=== PATIENT | female | born 1970 | race Caucasian/White ===

== ENCOUNTER 2022-03-17 20:22 | Emergency (ER) | payer BC, SELFPAY ==
--- NOTE | 2022-03-17 | ECG_ITS ---
Test Reason : CP Blood Pressure : / mmHG Vent. Rate : 126 BPM Atrial Rate : 126 BPM P-R Int : 124 ms QRS Dur : 080 ms QT Int : 306 ms P-R-T Axes : 077 059 -73 degrees QTc Int : 443 ms Sinus tachycardia Biatrial enlargement Nonspecific ST abnormality Inferior leads Lateral leads Abnormal ECG When compared with ECG of 29-NOV-2018 14:15, Heart rate has increased ST more depressed Inferior leads Lateral leads Referred By: Generic ED Physician Electronically Signed By:BHAVESH MARTINEZ MD
--- NOTE | ~2022-03-17 | XR_ITS ---
EXAMINATION: XR CHEST CLINICAL INFORMATION: Chest pain COMPARISON: 11/29/2018 TECHNIQUE: Frontal view of the chest was obtained. FINDINGS: No significant abnormality is noted involving the heart, lungs, mediastinum, bony thorax or soft tissues. XR/XR chest 1V IMPRESSION: Unremarkable examination.
[2022-03-17 20:25] VITALS: BP 169/84; PULSE 105; RESP 20; TEMP 36.6; O2SAT 99; BMI 23.2
[2022-03-17 20:39] LABS: MANUAL DIFF FLAG NO
[2022-03-17 20:47] LABS: Basophils Percent Auto 0.3 % (0-2); Eosinophils Absolute Auto 0.1 X10*3/uL (0.0-0.4); Eosinophils Percent Auto 0.6 % (0-4); Hematocrit 40.6 % (37.0-47.0); Imm Gran Abs Auto 0.02 X10*3/uL (0.00-0.03); Imm Gran Pct Auto 0.2 % (0.0-0.4); Lymphocytes Absolute Auto 4.2 X10*3/uL (1.2-4.9); Lymphocytes Percent Auto 36.1 % (20-40); Mean Corpuscular HGB Conc 34.5 g/dl (31.0-35.0); Mean Corpuscular Hemoglobin 32.6 pg (27.0-33.0); Mean Corpuscular Volume 94.6 fL (80.0-98.0); Mean Platelet Volume 10.5 fL (9.4-12.3); Monocytes Absolute Auto 0.7 X10*3/uL (0.1-1.2); Monocytes Percent Auto 6.1 % (2-11); Neutrophils Absolute Auto 6.6 x10*3/uL (2.0-8.3); Neutrophils Percent Auto 56.7 % (45-73); Platelet Count 395 X10*3/uL (160-400); Red Blood Count 4.29 X10*6/uL (4.20-5.50); Red Cell Distribution Width 11.6 % (11.0-16.0); White Blood Count 11.6 X10*3/uL (4.8-10.8)
[2022-03-17 20:56] VITALS: BP 141/82; PULSE 82; RESP 18; TEMP 36.7; O2SAT 100
[2022-03-17 21:05] LABS: Anion Gap 15 (12-20); Blood Urea Nitrogen 17 mg/dL (9-16); Carbon Dioxide 24 mmol/L (22-29); Chloride 105 mmol/L (96-108); Creatinine Clr Calc Pharmacy 52.2; Estimated Glomerular Filt Rate > 60; Glucose Random 115 mg/dL (60-115); Potassium 3.6 mmol/L (3.3-5.1); Sodium 140 mmol/L (135-145)
[2022-03-17 21:10] LABS: Troponin-I High Sensitivity < 3.5 ng/L (<3.5-17.0)
--- NOTE | 2022-03-17 21:31 | ED_ITS ---
HPI - Chest Pain General Chief Complaint: Chest Pain Stated Complaint: Chest pain Time Seen by Provider: 03/17/22 21:04 Source: patient Mode of arrival: ambulatory History of Present Illness HPI narrative: 51-year-old female, nonsmoker, states that she developed sharp midsternal chest pain that lasted approximately 10 minutes when she changed position from sitting to standing. She denies any associated dizziness, headache, shortness of breath, nausea, diaphoresis. She states that this is never happened before, denies any history of acid reflux/alcohol use but reports history of SVT but denies any feelings of palpitations or ?it's rapid heart rate?. Related Data Allergies Allergy/AdvReac Type Severity Reaction Status Date / Time acetaminophen [From PERCOCET] Allergy Unknown HIVES Unverified 02/11/20 16:23 naproxen [NAPROXEN] Allergy Unknown HIVES Unverified 02/11/20 16:23 oxycodone [Percocet] Allergy Unknown hives Verified 09/16/13 00:00 From PERCOCET Allergy Unknown HIVES Uncoded 02/11/20 16:23 Review of Systems Review of Systems: Pertinent positives and negatives as stated in HPI 10 point review of systems is otherwise negative. PMFSH Past Medical History Source: nursing notes reviewed Social History Social History Advance Directives: No Advance Directives Information Provided: No Physical Exam Vital Signs: Vital Signs: Last Vital Signs Temp 98.0 F 03/17/22 20:56 Pulse 82 03/17/22 20:56 Resp 18 03/17/22 20:56 BP 141/82 H 03/17/22 20:56 Pulse Ox 100 03/17/22 20:56 O2 Del Method 03/17/22 20:56 BMI result Body Mass Index 23.2 VITAL SIGNS: Reviewed. GENERAL: Well developed, well nourished, in no acute distress. HEAD: Normocephalic/atraumatic EYES: PERRLA, EOMI EARS: Ext canals without abnormality OROPHARYNX: no oral lesions noted, posterior pharynx clear NECK: Supple, no adenopathy LUNGS: Normal breath sounds. No adventitious sounds or accessory muscle use. SpO2<100>; CHEST WALL: No reproducible chest pain/deformity/crepitus CARDIOVASCULAR: Regular rate and rhythm without noted murmurs ABDOMEN: Soft, non-tender, non-distended with bowel sounds. No rigidity. No guarding. No palpable masses or hernias noted MUSCULOSKELETAL: No tenderness, deformities, or effusions noted on gross inspection. EXTREMITIES: No cyanosis, clubbing or edema. SKIN: Inspection of the skin reveals no rashes NEUROLOGIC: Alert and oriented x 4. Strength and sensation to light touch were grossly intact x 4. Course Course Course Narrative: 51-year-old female with history and clinical presentation which to be ruled out for cardiopulmonary etiology and lower clinical suspicion for any infectious etiology. Review of all investigations negative for acute findings, serial troponins are undetectable and there are nonspecific changes on the EKG. Chest x-ray was without acute findings and patient is otherwise discharged home in stable condition with instructions to follow-up with her primary care provider and/or her hybrid technologist. Reevaluation(s) Reevaluation #1: I discussed this EKG with cardiology and given clinical exam and history with patient being chest free they are nonspecific changes without need for acute intervention. Time: 21:54 MDM - Chest Pain Lab Data Result diagrams: 03/17/22 20:35 03/17/22 20:35 Labs: Lab Results 03/17/22 03/17/22 03/17/22 Range/Units 20:35 20:35 20:35 WBC 11.6 H (4.8-10.8) X10*3/uL RBC 4.29 (4.20-5.50) X10*6/uL Hgb 14.0 (12.0-16.0) g/dl Hct 40.6 (37.0-47.0) % MCV 94.6 (80.0-98.0) fL MCH 32.6 (27.0-33.0) pg MCHC 34.5 (31.0-35.0) g/dl RDW 11.6 (11.0-16.0) % Plt Count 395 (160-400) X10*3/uL MPV 10.5 (9.4-12.3) fL Immature Gran % (Auto) 0.2 (0.0-0.4) % Neut % (Auto) 56.7 (45-73) % Lymph % (Auto) 36.1 (20-40) % [place] % (Auto) 6.1 (2-11) % Eos % (Auto) 0.6 (0-4) % Baso % (Auto) 0.3 (0-2) % Lymph # (Auto) 4.2 (1.2-4.9) X10*3/uL [place] # (Auto) 0.7 (0.1-1.2) X10*3/uL Eos # (Auto) 0.1 (0.0-0.4) X10*3/uL Baso # (Auto) 0.0 (0.0-0.2) X10*3/uL Abs Immat Gran (auto) 0.02 (0.00-0.03) X10*3/uL Absolute Neuts (auto) 6.6 (2.0-8.3) x10*3/uL Absolute Nucleated RBC 0.000 (0.0-0.012) X10*3/uL Nucleated RBC % (auto) 0.0 (0.0-0.2) /100WBC Sodium 140 (135-145) mmol/L Potassium 3.6 (3.3-5.1) mmol/L Chloride 105 (96-108) mmol/L Carbon Dioxide 24 (22-29) mmol/L Anion Gap 15 (12-20) BUN 17 H (9-16) mg/dL Creatinine 0.93 (0.5-1.4) mg/dL Estim Creat Clear Calc 52.2 Estimated GFR > 60 Random Glucose 115 (60-115) mg/dL Calcium 10.0 (8.4-10.2) mg/dL Troponin I High Sens < 3.5 (<3.5-17.0) ng/L 03/17/22 Range/Units 21:55 WBC (4.8-10.8) X10*3/uL RBC (4.20-5.50) X10*6/uL Hgb (12.0-16.0) g/dl Hct (37.0-47.0) % MCV (80.0-98.0) fL MCH (27.0-33.0) pg MCHC (31.0-35.0) g/dl RDW (11.0-16.0) % Plt Count (160-400) X10*3/uL MPV (9.4-12.3) fL Immature Gran % (Auto) (0.0-0.4) % Neut % (Auto) (45-73) % Lymph % (Auto) (20-40) % [place] % (Auto) (2-11) % Eos % (Auto) (0-4) % Baso % (Auto) (0-2) % Lymph # (Auto) (1.2-4.9) X10*3/uL [place] # (Auto) (0.1-1.2) X10*3/uL Eos # (Auto) (0.0-0.4) X10*3/uL Baso # (Auto) (0.0-0.2) X10*3/uL Abs Immat Gran (auto) (0.00-0.03) X10*3/uL Absolute Neuts (auto) (2.0-8.3) x10*3/uL Absolute Nucleated RBC (0.0-0.012) X10*3/uL Nucleated RBC % (auto) (0.0-0.2) /100WBC Sodium (135-145) mmol/L Potassium (3.3-5.1) mmol/L Chloride (96-108) mmol/L Carbon Dioxide (22-29) mmol/L Anion Gap (12-20) BUN (9-16) mg/dL Creatinine (0.5-1.4) mg/dL Estim Creat Clear Calc Estimated GFR Random Glucose (60-115) mg/dL Calcium (8.4-10.2) mg/dL Troponin I High Sens < 3.5 (<3.5-17.0) ng/L ECG Data ECG #1: Attestation: I personally reviewed and interpreted this ECG as follows: Prior ECG tracings: available for review Interpretation: 2024: Sinus tachycardia, HR-126, no STEMI, MD/QRS/QTC are within normal limits. 2199: Normal sinus rhythm, HR-73, no STEMI, MD/QRS/QTC is within normal limits. Discharge Plan Discharge Clinical Impression: Atypical chest pain Patient Disposition: Home, Self-Care Instructions: Chest Pain (ED) Additional Instructions: 1. Resume all home medications as prescribed. 2. Strongly recommend that you follow-up with your primary care provider by calling the office on Saturday morning and setting up an appointment for re- evaluation further outpatient management. Return to the ER for worsening symptoms.
--- OUTSIDE RECORDS SUMMARY | 2022-03-17 21:31 | XMS_ITS | Continuity of Care Document ---
:1970 Author Organization [facility] Adult Address [address] [place] [address]- Care Team Providers Name Role Phone Trace CARDOZO, Anna Moon Primary Care Phys[id number] Date(s[facility]/18/19 - 07/16/19 [facility] [address] [place] [address]- [facility] Attending Physician: Anna Woodward NP Allergies, Adverse Reactions, Alerts Substance Reaction Severity Status naproxen Active Percocet 5/325 Active Immunizations Given and Recorded Vaccine Date Status Refusal Reason influenza virus vaccine, inactivated1 06/25/17 Given tetanus/diphtheria/pertussis, acel(Tdap)2 04/18/16 Record ed 1Result Comment: [06/25/2017] [facility] [id number] Comment: incorrect Medications aspirin 81 mg oral delayed release tablet 81 mg, By Mouth, Daily, # 30 tablet, Refills 0, Tot. Refills 0, Maintenance, 07/29/18 15:23:39 EST, Route to Pharmacy Electronically, [id number], [facility] [id number] Start Date: 07/29/18 Status: Ordereddiltiazem 180 mg/24 hours oral capsule, extended release 180 mg, 1, capsule, By Mouth, Daily, # 90 capsule, Refills 0, Maintenance, 11/20/18 9:17:41 EDT Start Date: 11/20/18 Status: Orderedibuprofen 800 mg oral tablet 800 mg, 1, tablet, By Mouth, 3 times a day, PRN, # 21 tablet, Refills 0, Tot. Refills 0, Maintenance, for pain, 02/05/19 16:23:38 EDT, Route to Pharmacy Electronically, [id number], [facility] #[id number] Start Date: 02/05/19 Stop Date: 02/12/19 Status: Orderedpropafenone 150 mg oral tablet 150 mg, 1, tablet, By Mouth, Every 8 hours, # 90 tablet, Refills 0, Maintenance, 11/20/18 9:17:04 EDT Start Date: 11/20/18 Status: Ordered Problem List Condition Effective Dates Status Health Status Informant Abdominal pulsatile mass(Confirmed) Active Situational anxiety(Confirmed) Active Atrial fibrillation(Confirmed) Active Pre-syncope(Confirmed) Active Palpitations(Confirmed) Active Annual physical exam(Confirmed) Active Sinusitis(Confirmed) Active Social History Social History Type Response Smoking Status Never smoker entered on: 04/18/16 Sex
--- OUTSIDE RECORDS SUMMARY | 2022-03-17 21:31 | XMS_ITS | Continuity of Care Document ---
:1970 Author Organization [facility] Address [address] [place] [address]- Care Team Providers Name Role Phone Not on Staff, PCP Primary Care Physician Unavailable Encounter [facility] Date(s): 12/17/20 - 01/26/[address] [id number] Attending Physician: Mynor Ricci MD Admitting Physician: Mynor Ricci MD Referring Physician: Mynor Ricci MD Allergies, Adverse Reactions, Alerts Substance Reaction Severity Status naproxen Active Percocet 5/325 Active Immunizations Given and Recorded Vaccine Date Status Refusal Reason influenza virus vaccine, inactivated1 06/25/17 Given tetanus/diphtheria/pertussis, acel(Tdap)2 04/18/16 Record ed 1Result Comment: [06/25/2017] [facility] [id number] Comment: incorrect Medications aspirin 81 mg oral delayed release tablet 81 mg, By Mouth, Daily, # 30 tablet, Refills 0, Tot. Refills 0, Maintenance, 07/29/18 15:23:39 EST, Route to Pharmacy Electronically, [id number], [facility] [id number] Start Date: 07/29/18 Status: Ordereddiltiazem 180 mg/24 hours oral capsule, extended release 180 mg, 1, capsule, By Mouth, Daily, # 90 capsule, Refills 0, Maintenance, 11/20/18 9:17:41 EDT Start Date: 11/20/18 Status: Orderedpropafenone 150 mg oral tablet 150 mg, 1, tablet, By Mouth, Every 8 hours, # 90 tablet, Refills 0, Maintenance, 11/20/18 9:17:04 EDT Start Date: 11/20/18 Status: Orderedursodiol 250 mg oral tablet 1 tablet = 250 mg, By Mouth, 2 times a day, # 28 tablet, 0 Refills, Maintenance, 08/28/19 15:15:00 EDT, Tablet, [id number], 148, cm, 03/04/19 10:56:00 EDT, Height Start Date: 08/28/19 Status: Ordered Problem List Condition Effective Dates Status Health Status Informant Abdominal pulsatile mass(Confirmed) Active Situational anxiety(Confirmed) Active Atrial fibrillation(Confirmed) Active Pre-syncope(Confirmed) Active Palpitations(Confirmed) Active Annual physical exam(Confirmed) Active Sinusitis(Confirmed) Active Social History Social History Type Response Smoking Status Never smoker entered on: 04/18/16 Sex
--- OUTSIDE RECORDS SUMMARY | 2022-03-17 21:31 | XMS_ITS | Continuity of Care Document ---
:1970 Author Organization [facility] Adult Address [address] [place] [address]- Care Team Providers Name Role Phone Trace RESIDENT CARE MANAGER RN, Anna Moon Primary [id number] Date[facility]/28/[facility] - 09/04/[facility] [address] [place] [address]- [facility] Attending Physician: Juanpablo MATSON, Reji Serna Allergies, Adverse Reactions, Alerts Substance Reaction Severity Status naproxen Active Percocet 5/325 Active Immunizations Given and Recorded Vaccine Date Status Refusal Reason influenza virus vaccine, inactivated1 06/25/17 Given tetanus/diphtheria/pertussis, acel(Tdap)2 04/18/16 Record ed 1Result Comment: [06/25/2017] [facility] [id number] Comment: incorrect Medications aspirin 81 mg oral delayed release tablet 81 mg, By Mouth, Daily, # 30 tablet, Refills 0, Tot. Refills 0, Maintenance, 07/29/18 15:23:39 EST, Route to Pharmacy Electronically, [id number], [facility] [id number] Start Date: 07/29/18 Status: Ordereddiltiazem 180 mg/24 [...] 0 Refills, Maintenance, 08/28/19 15:15:00 EDT, Tablet, [id number], 148, cm, 03/04/19 10:56:00 EDT, Height Start Date: 08/28/19 Status: Ordered Problem List Condition Effective Dates Status Health Status Informant Abdominal pulsatile mass(Confirmed) Active Situational anxiety(Confirmed) Active Atrial fibrillation(Confirmed) Active Pre-syncope(Confirmed) Active Palpitations(Confirmed) Active Annual physical exam(Confirmed) Active Sinusitis(Confirmed) Active Social History Social History Type Response Smoking Status Never smoker entered on: 04/18/16 Sex
--- OUTSIDE RECORDS SUMMARY | 2022-03-17 21:31 | XMS_ITS | Continuity of Care Document ---
:1970 Author Organization [facility] Address [address] [place] [address]- Care Team Providers Name Role Phone Not on Staff, PCP Primary Care Physician Unavailable Encounter [facility] Date(s): 02/23/21 - 03/31/[address] [address] Attending Physician: Ralph Campos MD Admitting Physician: Ralph Campos MD Referring Physician: Ralph Campos MD Allergies, Adverse Reactions, Alerts Substance Reaction Severity Status naproxen Active Percocet 5/325 Active Immunizations Given and Recorded Vaccine Date Status Refusal Reason influenza virus vaccine, inactivated1 06/25/17 Given tetanus/diphtheria/pertussis, acel(Tdap)2 04/18/16 Record ed 1Result Comment: [06/25/2017] [facility] [id number] Comment: incorrect Medications aspirin 81 mg oral delayed release tablet 81 mg, By Mouth, Daily, # 30 tablet, Refills 0, Tot. Refills 0, Maintenance, 07/29/18 15:23:39 EST, Route to Pharmacy Electronically, [id number], [facility] [id number] Start Date: 07/29/18 Status: Ordereddiltiazem 180 mg/24 [...] 0 Refills, Maintenance, 08/28/19 15:15:00 EDT, Table[id number], 148, cm, 03/04/19 10:56:00 EDT, Height Start Date: 08/28/19 Status: Ordered Problem List Condition Effective Dates Status Health Status Informant Abdominal pulsatile mass(Confirmed) Active Situational anxiety(Confirmed) Active Atrial fibrillation(Confirmed) Active Pre-syncope(Confirmed) Active Palpitations(Confirmed) Active Annual physical exam(Confirmed) Active Sinusitis(Confirmed) Active Social History Social History Type Response Smoking Status Never smoker entered on: 04/18/16 Sex
--- OUTSIDE RECORDS SUMMARY | 2022-03-17 21:31 | XMS_ITS | Continuity of Care Document ---
:1970 Author Organization [facility] Adult Address [address] [place] [address]- Care Team Providers Name Role Phone Trace HOME CARE AND HOME HEALTH AIDES TEACHER, Anna Moon Primary Care Physician Encounter [facility] Date(s): 12/15/19 - 01/14/20 [facility] [address] [place] [address]- [facility] Allergies, Adverse Reactions, Alerts Substance Reaction Severity Status naproxen Active Percocet 5/325 Active Immunizations Given and Recorded Vaccine Date Status Refusal Reason influenza virus vaccine, inactivated1 06/25/17 Given tetanus/diphtheria/pertussis, acel(Tdap)2 04/18/16 Record ed 1Result Comment: [06/25/2017] [facility] [id number] Comment: incorrect Medications aspirin 81 mg oral delayed release tablet 81 mg, By Mouth, Daily, # 30 tablet, Refills 0, Tot. Refills 0, Maintenance, 07/29/18 15:23:39 EST, Route to Pharmacy Electronically, [id number], [facility] [id number] Start Date: 07/29/18 Status: Ordereddiltiazem 180 mg/24 [...] 0 Refills, Maintenance, 08/28/19 15:15:00 EDT, Tablet, [id number], 148, cm, 03/04/19 10:56:00 EDT, Height Start Date: 08/28/19 Status: Ordered Problem List Condition Effective Dates Status Health Status Informant Abdominal pulsatile mass(Confirmed) Active Situational anxiety(Confirmed) Active Atrial fibrillation(Confirmed) Active Pre-syncope(Confirmed) Active Palpitations(Confirmed) Active Annual physical exam(Confirmed) Active Sinusitis(Confirmed) Active Social History Social History Type Response Smoking Status Never smoker entered on: 04/18/16 Sex
--- OUTSIDE RECORDS SUMMARY | 2022-03-17 21:31 | XMS_ITS | Continuity of Care Document ---
:1970 Author Organization [facility] Adult Address [address] [place] [address]- Care Team Providers Name Role Phone Trace RABBLER, Anna Moon Primary Care Physician Encounter [facility] Date(s): 08/28/19 - 09/07/19 [facility] Adult [address] [place] [address]- [facility] Attending Physician: José Miguel Bangura Admitting Physician: AdmJosé Miguel funez Referring Physician: AdmtrJosé Miguel Allergies, Adverse Reactions, Alerts Substance Reaction Severity Status naproxen Active Percocet 5/325 Active Immunizations Given and Recorded Vaccine Date Status Refusal Reason influenza virus vaccine, inactivated1 06/25/17 Given tetanus/diphtheria/pertussis, acel(Tdap)2 04/18/16 Record ed 1Result Comment: [06/25/2017] [facility] [id number] Comment: incorrect Medications aspirin 81 mg oral delayed release tablet 81 mg, By Mouth, Daily, # 30 tablet, Refills 0, Tot. Refills 0, Maintenance, 07/29/18 15:23:39 EST, Route to Pharmacy Electronically, [id number], [facility] [id number] Start Date: 07/29/18 Status: Ordereddiltiazem 180 mg/24 [...] 0 Refills, Maintenance, 08/28/19 15:15:00 EDT, Tablet, [email or web address] #[id number], 148, cm, 03/04/19 10:56:00 EDT, Height Start Date: 08/28/19 Status: Ordered Problem List Condition Effective Dates Status Health Status Informant Abdominal pulsatile mass(Confirmed) Active Situational anxiety(Confirmed) Active Atrial fibrillation(Confirmed) Active Pre-syncope(Confirmed) Active Palpitations(Confirmed) Active Annual physical exam(Confirmed) Active Sinusitis(Confirmed) Active Social History Social History Type Response Smoking Status Never smoker entered on: 04/18/16 Sex
--- OUTSIDE RECORDS SUMMARY | 2022-03-17 21:31 | XMS_ITS | Continuity of Care Document ---
:1970 Author Organization [facility] Adult Address [address] [place] [address]- Care Team Providers Name Role Phone Trace HOME ASSESSMENT NURSE, Anna Moon Primary Care Physician Encounter [facility] Date(s): 06/16/19 - 06/26/19 [facility] [address] [place] [address]- [facility] Attending Physician: José Miguel Bangura Admitting Physician: AdmJosé Miguel funez Referring Physician: AdmtrJosé Miguel Allergies, Adverse Reactions, Alerts Substance Reaction Severity Status naproxen Active Percocet 5/325 Active Immunizations Given and Recorded Vaccine Date Status Refusal Reason influenza virus vaccine, inactivated1 06/25/17 Given tetanus/diphtheria/pertussis, acel(Tdap)2 04/18/16 Record ed 1Result Comment: [06/25/2017] [facility] [id number] Comment: incorrect Medications aspirin 81 mg oral delayed release tablet 81 mg, By Mouth, Daily, # 30 tablet, Refills 0, Tot. Refills 0, Maintenance, 07/29/18 15:23:39 EST, Route to Pharmacy Electronically, [id number], [facility] [id number] Start Date: 07/29/18 Status: Ordereddiltiazem 180 mg/24 [...] 02/05/19 16:23:38 EDT, Route to Pharmacy Electronically, [id number], [facility] #[id number] Start Date: 02/05/19 Stop Date: 02/12/19 Status: [...]
--- NOTE | 2022-03-17 21:56 | ECG_ITS ---
Test Reason : REPEAT Blood Pressure : / mmHG Vent. Rate : 073 BPM Atrial Rate : 073 BPM P-R Int : 128 ms QRS Dur : 084 ms QT Int : 390 ms P-R-T Axes : 070 042 -08 degrees QTc Int : 429 ms Normal sinus rhythm with sinus arrhythmia Nonspecific ST and T wave abnormality Abnormal ECG When compared with ECG of 17-MAR-2022 20:25, Vent. rate has decreased BY 53 BPM T wave inversion less evident in Inferior leads T wave inversion no longer evident in Lateral leads Referred By: Sybil Romero Electronically Signed By:BHAVESH MARTINEZ MD
[2022-03-17 22:23] LABS: Troponin-I High Sensitivity < 3.5 ng/L (<3.5-17.0)
== END 2022-03-18 00:19 | disposition home or self-care (01) ==
PROVIDERS: Emergency Provider Student in an Organized Health Care Education/Training Program
DX: R07.89 Other chest pain (principal)
CPT/HCPCS: 36415; 71045; 80048; 84484; 85025; 93005; 99283; 99284

== ENCOUNTER 2024-05-08 04:44 | Emergency (ER) | payer BC, SELFPAY ==
--- NOTE | 2024-05-08 | ECG_ITS ---
Test Reason : TACARDYA Blood Pressure : / mmHG Vent. Rate : 126 BPM Atrial Rate : 126 BPM P-R Int : 124 ms QRS Dur : 080 ms QT Int : 308 ms P-R-T Axes : -25 -14 084 degrees QTc Int : 446 ms Sinus tachycardia Left ventricular hypertrophy with repolarization abnormality ( R in aVL , Sokolow-Zavala ) Abnormal ECG When compared with ECG of 17-MAR-2022 22:00, Vent. rate has increased BY 53 BPM Questionable change in QRS axis Non-specific change in ST segment in Inferior leads ST now depressed in Anterolateral leads T wave inversion no longer evident in Anterior leads T wave inversion now evident in Lateral leads Referred By: Generic ED Physician Electronically Signed By:SIMI SCHWAB MD
[2024-05-08 04:52] VITALS: BP 103/53; PULSE 130; RESP 20; TEMP 36.6; O2SAT 97; BMI 24.2
[2024-05-08 05:19] LABS: Basophils Percent Auto 0.2 % (0-2); Eosinophils Absolute Auto 0.1 X10*3/uL (0.0-0.4); Eosinophils Percent Auto 0.3 % (0-4); Hematocrit 43.8 % (37.0-47.0); Hemoglobin 15.2 g/dl (12.0-16.0); Imm Gran Abs Auto 0.06 X10*3/uL (0.00-0.03); Imm Gran Pct Auto 0.3 % (0.0-0.4); Lymphocytes Absolute Auto 0.5 X10*3/uL (1.2-4.9); Lymphocytes Percent Auto 2.6 % (20-40); MANUAL DIFF FLAG SCAN; Mean Corpuscular HGB Conc 34.7 g/dl (31.0-35.0); Mean Corpuscular Volume 95.2 fL (80.0-98.0); Mean Platelet Volume 10.1 fL (9.4-12.3); Monocytes Percent Auto 5.6 % (2-11); Neutrophils Absolute Auto 16.4 x10*3/uL (2.0-8.3); Platelet Count 406 X10*3/uL (160-400); Red Cell Distribution Width 12.3 % (11.0-16.0); SCAN SMEAR FLAG 1
[2024-05-08] MEDS: Ondansetron ODT 4 MG TAB.RAPDIS TRANSLINGU (05:29)
[2024-05-08 05:44] LABS: SLIDE REVIEW VERIFIED
[2024-05-08 05:46] LABS: Alanine Aminotransferase 22 U/L (0-31); Albumin Level 4.5 g/dL (3.5-5.0); Alkaline Phosphatase 90 U/L (39-117); Anion Gap 14 (12-20); Aspartate Amino Transferase 29 U/L (5-31); Bilirubin Total 0.3 mg/dL (0.0-1.0); Blood Urea Nitrogen 18 mg/dL (9-16); Calcium 9.2 mg/dL (8.4-10.2); Carbon Dioxide 20 mmol/L (22-29); Chloride 111 mmol/L (96-108); Creatinine Clr Calc Pharmacy 57.4; Estimated Glomerular Filt Rate > 60; Glucose Random 135 mg/dL (60-115); Lipase 35 U/L (8-78); Potassium 4.1 mmol/L (3.3-5.1); Sodium 141 mmol/L (135-145); Total Protein 8.2 g/dL (6.5-8.0)
[2024-05-08 05:47] LABS: HCG Quantitative 12 mIU/mL
[2024-05-08 06:03] LABS: Influenza A PCR NEGATIVE (Negative); Influenza B PCR NEGATIVE (Negative); Resp Syncy Virus RNA Qual PCR NEGATIVE (Negative); SARS COV2 PCR INHOUSE NEGATIVE (Negative)
--- NOTE | 2024-05-08 07:13 | ED.GENADULT ---
[facility] - General Adult General Chief complaint: Abdominal Pain Stated complaint: food poisoning ? Time Seen by Provider: 05/08/24 06:55 Source: patient Mode of arrival: ambulatory History of Present Illness ED Provider: Heather WELSH narrative: 53-year-old female with history of SVT comes in after having eaten [place] food last night and states that she suddenly developed abdominal discomfort with multiple episodes of nausea, vomiting as well as diarrhea but denies any fevers or chills or urinary symptoms. At this time patient states she feels much improved. Related Data Home Medications ?Medication ?Instructions ?Recorded ?Confirmed diltiazem HCl 120 mg capsule,24 120 mg PO .q pm 09/21/22 hr,extended release diltiazem HCl 180 mg 180 mg PO DAILY 09/21/22 capsule,extended release 24 hr Previous Rx's ?Medication ?Instructions ?Recorded ondansetron 4 mg disintegrating 4 mg PO Q8H PRN nausea and 05/08/24 tablet vomiting #7 tabs Allergies Allergy/AdvReac Type Severity Reaction Status Date / Time acetaminophen [From PERCOCET] Allergy Unknown HIVES Verified 05/08/24 04:55 naproxen [NAPROXEN] Allergy Unknown HIVES Verified 05/08/24 04:55 oxycodone [Percocet] Allergy Unknown hives Verified 05/08/24 04:55 From PERCOCET Allergy Unknown HIVES Uncoded 09/21/22 08:07 Review of Systems Review of Systems: Pertinent positives and negatives as stated in [facility] Past Medical History Source: nursing notes reviewed Social History Social History Advance Directives: No Advance Directives Information Provided: No Physical Exam ED Vital Signs: Vital Signs - 24 hr 05/08/24 04:52 05/08/24 07:19 Temperature 97.9 F 98.1 F Pulse Rate 130 H 103 H Respiratory Rate 20 18 Blood Pressure 103/53 L 120/65 Pulse Oximetry 97 96 Oxygen Delivery Method Room Air Room Air BMI result Body Mass Index 24.2 VITAL SIGNS: Reviewed. GENERAL: Well developed, well nourished, in no acute distress. HEAD: Normocephalic/atraumatic EYES: PERRLA, EOMI EARS: Ext canals without abnormality NOSE: Nares patent bilateral OROPHARYNX: no oral lesions noted, posterior pharynx clear NECK: Supple, no adenopathy LUNGS: Normal breath sounds. No adventitious sounds or accessory muscle use. SpO2<97> CARDIOVASCULAR: Regular rate and rhythm without noted murmurs ABDOMEN: Soft, non-tender, non-distended with bowel sounds. MUSCULOSKELETAL: No tenderness, deformities, or effusions noted on gross inspection. EXTREMITIES: No cyanosis, clubbing or edema. SKIN: Inspection of the skin reveals no rashes NEUROLOGIC: Alert and oriented x 4. Strength and sensation to light touch were grossly intact x 4. Medications Administered Discontinued Medications Generic Name Dose Route Start Last Admin Trade Name Freq PRN Reason Stop Dose Admin Ondansetron HCl 4 mg 05/08/24 05:24 05/08/24 05:29 Ondansetron Odt 4 Mg Tab.Rapdis TRANSLINGU 05/08/24 05:25 4 mg ONCE ONE Administration Medical Decision Making Medical Decision Making [facility] Narrative: 53-year-old female with history and clinical presentation, DD DX: Viral gastroenteritis, food poisoning, patient is completely had resolution of her symptoms, no clinical concern for obstruction/acute appendicitis or diverticulitis, no clinical suspicion for urinary tract infection. EKG: Sinus tachycardia, HR-126, STEMI, TN/QRS/QTC/QTC is within normal limits. On my review of laboratory investigations there is evidence of a noninfectious leukocytosis, no anemia and no thrombocytopenia. There is no demonstrate ALEXIS/electrolyte or liver enzyme derangements. Viral testing is negative for COVID-19/influenza/RSV. My interpretation is patient has possibility of gastroenteritis versus food poisoning, given the acute onset suspect food poisoning as no one else in the house had similar meal. The tachycardia was noted is likely secondary to patient's vomiting episodes, she is completely asymptomatic for abdominal pain/nausea/vomiting at this time. She will be discharged with a prescription for Zofran instructed to follow-up with the primary care doctor. She is tolerating oral intake. Differential Diagnosis Differential Diagnoses: The differential diagnosis associated with the presentation includes As above Admission/Observation Consideration of admission/observation: Escalation of care including admission/observation considered As above Lab Data [facility] Lab Attestation statement: I reviewed the patient's lab results. As above 05/08/24 05:13 05/08/24 05:13 Labs: Lab Results 05/08/24 Range/Units 05:13 WBC 18.0 H (4.8-10.8) X10*3/uL RBC 4.60 (4.20-5.50) X10*6/uL Hgb 15.2 (12.0-16.0) g/dl Hct 43.8 (37.0-47.0) % MCV 95.2 (80.0-98.0) fL MCH 33.0 (27.0-33.0) pg MCHC 34.7 (31.0-35.0) g/dl RDW 12.3 (11.0-16.0) % Plt Count 406 H (160-400) X10*3/uL MPV 10.1 (9.4-12.3) fL Immature Gran % (Auto) 0.3 (0.0-0.4) % Neut % (Auto) 91.0 H (45-73) % Lymph % (Auto) 2.6 L (20-40) % [place] % (Auto) 5.6 (2-11) % Eos % (Auto) 0.3 (0-4) % Baso % (Auto) 0.2 (0-2) % Lymph # (Auto) 0.5 L (1.2-4.9) X10*3/uL [place] # (Auto) 1.0 (0.1-1.2) X10*3/uL Eos # (Auto) 0.1 (0.0-0.4) X10*3/uL Baso # (Auto) 0.0 (0.0-0.2) X10*3/uL Abs Immat Gran (auto) 0.06 H (0.00-0.03) X10*3/uL Absolute Neuts (auto) 16.4 H (2.0-8.3) x10*3/uL Absolute Nucleated RBC 0.000 (0.0-0.012) X10*3/uL Nucleated RBC % (auto) 0.0 (0.0-0.2) /100WBC Smear Tech's Comments VERIFIED Sodium 141 (135-145) mmol/L Potassium 4.1 (3.3-5.1) mmol/L Chloride 111 H (96-108) mmol/L Carbon Dioxide 20 L (22-29) mmol/L Anion Gap 14 (12-20) BUN 18 H (9-16) mg/dL Creatinine 0.88 (0.5-1.4) mg/dL Estim Creat Clear Calc 57.4 Estimated GFR > 60 Random Glucose 135 H (60-115) mg/dL Calcium 9.2 D (8.4-10.2) mg/dL Total Bilirubin 0.3 (0.0-1.0) mg/dL AST 29 (5-31) U/L ALT 22 (0-31) U/L Alkaline Phosphatase 90 (39-117) U/L Total Protein 8.2 H (6.5-8.0) g/dL Albumin 4.5 (3.5-5.0) g/dL Lipase 35 (8-78) U/L Beta HCG, Quant 12 mIU/mL Influenza Type A (PCR) NEGATIVE (Negative) Influenza Type B (PCR) NEGATIVE (Negative) RSV RNA Qual (PCR) NEGATIVE (Negative) SARS-CoV-2 RNA (RT-PCR) NEGATIVE (Negative) Independent Interpretation I performed an independent interpretation of an: EKG Interpretation: As above External Record Review External record reviewed: Prior outpatient labs and Prior outpatient radiology Discharge Plan Discharge Clinical Impression: Gastroenteritis, Food poisoning Patient Disposition: Home, Self-Care Instructions: Gastroenteritis (ED), Food Poisoning (ED) Additional Instructions: Resume all home medications as prescribed, especially your heart rate medication. You are being discharged with a prescription for nausea medication. You need to follow-up with your primary care doctor within a week and do not hesitate to return to the emergency room for any worsening symptoms. Prescriptions: New ondansetron 4 mg tablet,disintegrating 4 mg PO Q8H PRN (Reason: nausea and vomiting) Qty: 7 0RF No Action diltiazem HCl 180 mg capsule,extended release 24hr 180 mg PO DAILY Rx Instructions: 1 capsule in the am diltiazem HCl 120 mg capsule,extended release 24 hr 120 mg PO .q pm Print Language: Grenadian
[2024-05-08 07:19] VITALS: BP 120/65; PULSE 103; RESP 18; TEMP 36.7; O2SAT 96
[2024-05-08 07:40] VITALS: BP 120/65; PULSE 103; RESP 18; TEMP 36.7; O2SAT 96
--- NOTE | 2024-05-08 07:40 | PC.NURSE ---
discharged patient for primary RN.
== END 2024-05-08 07:45 | disposition home or self-care (01) ==
PROVIDERS: Emergency Provider Student in an Organized Health Care Education/Training Program
DX: A05.9 Bacterial foodborne intoxication, unspecified (principal); R10.9 Unspecified abdominal pain; R11.2 Nausea with vomiting, unspecified; K52.9 Noninfective gastroenteritis and colitis, unspecified; Z03.818 Encounter for observation for suspected exposure to other biological agents ruled out
CPT/HCPCS: 0241U; 36415; 80053; 83690; 84702; 85025; 93005; 99283; 99284

== ENCOUNTER → 2024-05-08 05:07 | Outpatient (BNV) | payer BC, SELFPAY | PROVIDERS: Emergency Provider Student in an Organized Health Care Education/Training Program; Visit Provider Internal Medicine Cardiovascular Disease | DX: R00.0 Tachycardia, unspecified (principal); R94.31 Abnormal electrocardiogram [ECG] [EKG] | CPT/HCPCS: 93010 ==

== ENCOUNTER → 2025-01-11 10:47 | Outpatient (REF) | payer BC, SELFPAY | LOC: HO.CARD 10:47 | PROVIDERS: Visit Provider Internal Medicine Cardiovascular Disease | DX: Z13.89 Encounter for screening for other disorder (principal) ==